=== PATIENT | female | born 1960 | race Two or more races ===

== ENCOUNTER 2020-11-11 05:45 | Day surgery (SDC) | payer OTHER ==
[~2020-11-11 05:45] MED LIST: COZAAR50 MG PO; EC-NAPROSYN500 MG PO; NORFLEX30 MG/ML; RELAFEN500 MG; SYNTHROID100 MCG PO
== END 2020-11-11 11:20 | disposition home or self-care (01) ==
LOC: CIR.AMB 05:45
PROVIDERS: ATTEND Surgery
DX: T82.898A Other specified complication of vascular prosthetic devices, implants and grafts, initial encounter (principal); Z20.822 Contact with and (suspected) exposure to COVID-19

== ENCOUNTER 2024-10-06 06:25 | Day surgery (SDC) | payer OTHER ==
[2024-10-06] MEDS ORDERED: DIPHENHYDRAMINE HCL 50 MG/ML VIAL 1ML IV ONE (14:15)
[2024-10-06] MEDS ORDERED: MIDAZOLAM HCL 2 MG/2 ML VIAL IV ONE (14:15)
[2024-10-06] MEDS ORDERED: fentaNYL CITRATE 50 MCG/ML AMPUL IV PUSH ONE (14:15)
== END 2024-10-06 16:05 | disposition home or self-care (01) ==
LOC: AMB-ENDOS 06:25
PROVIDERS: ATTEND Colon & Rectal Surgery
DX: K57.30 Diverticulosis of large intestine without perforation or abscess without bleeding (principal); Z86.0100 Personal history of colon polyps, unspecified; Z91.013 Allergy to seafood; Z88.0 Allergy status to penicillin